=== PATIENT | female | born 1975 | race Caucasian/White ===

== ENCOUNTER 2017-01-19 17:16 | Observation (INO) | payer MEDICAID ==
[~2017-01-19] VITALS: Ht 162 cm; Wt 82.6 kg
[~2017-01-19 17:16] MED LIST: FERR-43 PO
[2017-01-19 19:08] LABS: CLARITY URINE CLEAR (CLEAR); COLOR URINE YELLOW (YELLOW); GLUCOSE URINE NEGATIVE (NEGATIVE); KETONES URINE NEGATIVE (NEGATIVE); LEUKOCYTE ESTERASE URINE 1+ (NEGATIVE); NITRITE URINE NEGATIVE (NEGATIVE); OCCULT BLOOD URINE TRACE (NEGATIVE); PROTEIN URINE 2+ (NEGATIVE); SPECIFIC GRAVITY URINE 1.009 (1.005-1.030); UROBILINOGEN URINE 0.2 E.U./dL (0.2-1.0)
[2017-01-19 19:13] LABS: BASOPHILS % 0.4 % (0.0-2.0); EOSINOPHILS % 1.8 % (0.0-5.0); HEMATOCRIT. 30.9 % (36.0-48.0); HEMOGLOBIN. 10.3 g/dL (12.0-16.0); LYMPHOCYTES % 21.7 % (20.0-50.0); MEAN CORPUSCULAR HEMOGLOBIN 32.1 pg (28.0-32.0); MEAN CORPUSCULAR HGB CONC 33.5 g/dL (31.0-37.0); MEAN CORPUSCULAR VOLUME 95.9 fL (81.0-99.0); MEAN PLATELET VOLUME 9.7 fl (7.4-10.4); MONOCYTES % 6.6 % (2.0-8.0); NEUTROPHILS % 69.5 % (40.0-76.0); PLATELET 177 x1000/uL (130-400); RED BLOOD CELL COUNT 3.22 mill/uL (4.2-5.4); RED CELL DISTRIBUTION WIDTH 14.5 % (11.6-14.6); WHITE BLOOD COUNT 8.7 x1000/uL (4.5-11.0)
[2017-01-19 19:17] LABS: CHLORIDE 110 mEq/L (98-107); INDEX HEMOLYSI 1 (1-3); INDEX ICTERIC 1 (1-4); INDEX LIPEMIC 1 (1-3)
[2017-01-19 19:25] LABS: ANION GAP 14; CALCIUM 7.9 mg/dL (8.5-10.1); CARBON DIOXIDE 20 mEq/L (21-32); UREA NITROGEN BLOOD 22 mg/dL (7-21); eGFR 39 mL/min (>60)
[2017-01-19 19:26] LABS: ALANINE AMINOTRANSFERASE 16 IU/L (13-61); ALBUMIN 1.9 g/dL (3.4-5.0); D-DIMER 1.27 mg/L FEU (<0.50); INR 0.9; PARTIAL THROMBOPLASTIN TIME 28.6 sec (24.0-34.0); PROTHROMBIN TIME 9.4 sec; URIC ACID 6.9 mg/dL (2.6-7.2)
[2017-01-19 19:27] LABS: BACTERIA URINE 2+; RBC URINE NONE SEEN /hpf (0-2); SQUAMOUS EPITHELIAL CELL URINE 1+ /lpf (RARE/1+)
[2017-01-19] MEDS ORDERED: LACTATED RINGERS 1,000 ML IV SCH (20:00)
[2017-01-19] MEDS ORDERED: CEFAZOLIN 2,000 MG in DEXT 5% WATER 100 ML IV NR (21:00)
== END 2017-01-19 21:00 | disposition home or self-care (01) ==
LOC: L&D 17:16
PROVIDERS: ADMIT Obstetrics & Gynecology; ATTEND Obstetrics & Gynecology
DX: O26.893 Other specified pregnancy related conditions, third trimester (principal); R51 Headache; R03.0 Elevated blood-pressure reading, without diagnosis of hypertension; Z3A.37 37 weeks gestation of pregnancy
CPT/HCPCS: 36415; 80053; 81001; 84550; 85025; 85379; 85384; 85610; 85730; 96365; 99281; G0378; J0690; J7120; 96360; J7060

== ENCOUNTER 2017-02-02 15:12 | Inpatient (IN) | payer MEDICAID ==
[~2017-02-02] VITALS: Ht 160 cm; Wt 82.6 kg
[2017-02-02] MEDS ORDERED: MISOPROSTOL 100MCG TABLET VG SCH (16:30)
[2017-02-02] MEDS ORDERED: CARBOPROST TROMETHAMINE 250 MCG/ML AMPUL IM PRN (16:30)
[2017-02-02] MEDS ORDERED: METHYLERGONOVINE MALEATE 0.2 MG/ML IM PRN (16:30)
[2017-02-02] MEDS: LACTATED RINGERS 1,000 ML IV SCH ×2 (16:51→19:06)
[2017-02-02 17:08] LABS: CLARITY URINE CLEAR (CLEAR); COLOR URINE YELLOW (YELLOW); GLUCOSE URINE NEGATIVE (NEGATIVE); KETONES URINE NEGATIVE (NEGATIVE); LEUKOCYTE ESTERASE URINE NEGATIVE (NEGATIVE); NITRITE URINE NEGATIVE (NEGATIVE); OCCULT BLOOD URINE 1+ (NEGATIVE); PH URINE 6.5 (4.5-8.0); PROTEIN URINE 3+ (NEGATIVE); SPECIFIC GRAVITY URINE 1.007 (1.005-1.030); UROBILINOGEN URINE 0.2 E.U./dL (0.2-1.0)
[2017-02-02 17:09] LABS: BASOPHILS % 0.4 % (0.0-2.0); EOSINOPHILS % 1.9 % (0.0-5.0); HEMATOCRIT. 31.7 % (36.0-48.0); HEMOGLOBIN. 10.8 g/dL (12.0-16.0); LYMPHOCYTES % 20.8 % (20.0-50.0); MEAN CORPUSCULAR HEMOGLOBIN 32.3 pg (28.0-32.0); MEAN PLATELET VOLUME 9.9 fl (7.4-10.4); MONOCYTES % 5.2 % (2.0-8.0); NEUTROPHILS % 71.7 % (40.0-76.0); PLATELET 183 x1000/uL (130-400); RED BLOOD CELL COUNT 3.33 mill/uL (4.2-5.4)
[2017-02-02 17:22] LABS: *AMPHETAMINES SCREEN URINE NEGATIVE (NEGATIVE); *BARBITURATES SCREEN URINE NEGATIVE (NEGATIVE); *BENZODIAZEPINES SCREEN URINE NEGATIVE (NEGATIVE); *COCAINE SCREEN URINE NEGATIVE (NEGATIVE); CANNABINOID URINE SCREEN NEGATIVE (NEGATIVE); ECSTASY MDMA SCREEN URINE NEGATIVE (NEGATIVE); METHADONE URINE SCREEN NEGATIVE (NEGATIVE); OPIATES URINE SCREEN NEGATIVE (NEGATIVE); PHENCYCLIDINE URINE SCREEN NEGATIVE (NEGATIVE)
[2017-02-02 17:22] LABS: ALANINE AMINOTRANSFERASE 18 IU/L (13-61); ALBUMIN 1.8 g/dL (3.4-5.0); ANION GAP 12; CARBON DIOXIDE 19 mEq/L (21-32); CHLORIDE 113 mEq/L (98-107); INDEX HEMOLYSI 3 (1-3); INDEX ICTERIC 1 (1-4); INDEX LIPEMIC 1 (1-3); UREA NITROGEN BLOOD 20 mg/dL (7-21); eGFR 33 mL/min (>60)
[2017-02-02 17:24] LABS: INR 0.9; PARTIAL THROMBOPLASTIN TIME 29.3 sec (24.0-34.0); PROTHROMBIN TIME 9.1 sec
[2017-02-02 17:34] LABS: BACTERIA URINE TRACE; RBC URINE 0-2 /hpf (0-2); SQUAMOUS EPITHELIAL CELL URINE FEW /lpf (RARE/1+); WBC URINE 0-2 /hpf (0-2)
[2017-02-02 17:47] LABS: HEPATITIS B SURFACE ANTIGEN NEGATIVE
[2017-02-02 17:58] LABS: RUBELLA IGG > 500.0 IU/mL (4.99-10)
[2017-02-02] MEDS ORDERED: FENTANYL CITRATE/PF 50MCG/ML 2ML VIAL ONE (21:13)
[2017-02-02] MEDS ORDERED: ONDANSETRON HCL 4MG/2ML VIAL ONE ×2 (21:40→22:17)
[2017-02-02] MEDS ORDERED: CEFAZOLIN SODIUM 1000MG/VIAL ONE (21:40)
[2017-02-02] MEDS ORDERED: OXYTOCIN 10 UNITS/ML 1ML ONE (21:41)
[2017-02-02] MEDS ORDERED: METOCLOPRAMIDE HCL 10MG/2ML VIAL ONE (21:45)
[2017-02-02] MEDS ORDERED: DEXAMETHASONE 4MG/ML 1ML VIAL ONE (21:45)
[2017-02-02] MEDS ORDERED: IBUPROFEN 400MG TABLET PO PRN (22:30)
[2017-02-02] MEDS ORDERED: RHO(D) IMMUNE GLOBULIN 300 MCG/SYR IM PRN (22:30)
[2017-02-02] MEDS ORDERED: HYDROMORPHONE HCL/PF 2MG/ML CPJ IM PRN (22:30)
[2017-02-02] MEDS ORDERED: KETOROLAC 30MG/ML VIAL IV PRN (23:00)
[2017-02-03] VITALS (8 sets, daily range): BP systolic 121–138; BP diastolic 78–98
[2017-02-03] MEDS: DEXT 5%/LR + PITOCIN 20UNITS/L 1,000 ML IV SCH ×2 (00:55→07:58)
[2017-02-03] MEDS: HYDROMORPHONE HCL/PF 2MG/ML CPJ IV PRN ×2 (01:15→01:26)
[2017-02-03] MEDS ORDERED: PNEUMOCOCCAL 23-VAL P-SAC VAC 0.5 ML IM ONE (04:00)
[2017-02-03 06:49] LABS: HEMATOCRIT. 30.5 % (36.0-48.0); HEMOGLOBIN. 10.1 g/dL (12.0-16.0); MEAN CORPUSCULAR HEMOGLOBIN 31.8 pg (28.0-32.0); MEAN CORPUSCULAR HGB CONC 33.1 g/dL (31.0-37.0); MEAN CORPUSCULAR VOLUME 96.3 fL (81.0-99.0); MEAN PLATELET VOLUME 9.9 fl (7.4-10.4); PLATELET 189 x1000/uL (130-400); RED BLOOD CELL COUNT 3.17 mill/uL (4.2-5.4); RED CELL DISTRIBUTION WIDTH 14.8 % (11.6-14.6)
[2017-02-03 06:53] LABS: DIFFERENTIAL COMMENT 1
[2017-02-03 10:23] LABS: PLATELET ESTIMATE NORMAL
[2017-02-03] MEDS: BISACODYL 10MG SUPP PR PRN (20:12)
[2017-02-03] MEDS: ACETAMINOPHEN WITH CODEINE 300/30MG TABLET PO PRN (20:13)
[2017-02-03] MEDS: IBUPROFEN 800MG TABLET PO PRN (20:14)
[2017-02-04] MEDS ORDERED: TETANUS, DIPHTHERIA, PERTUSSIS VAC/PF 0.5ML (>7YR OLD) IM ONE (00:30)
[2017-02-04 05:20] VITALS: BP 130/90
[2017-02-04] MEDS: ACETAMINOPHEN WITH CODEINE 300/30MG TABLET PO PRN ×2 (05:32→18:40)
[2017-02-04 07:35] VITALS: BP 128/83
[2017-02-04] MEDS: IBUPROFEN 800MG TABLET PO PRN ×2 (13:15→22:02)
[2017-02-04 16:00] VITALS: BP 123/82
[2017-02-04 20:15] VITALS: BP 126/76
[2017-02-04] MEDS: BISACODYL 10MG SUPP PR PRN (22:02)
[2017-02-05 04:10] VITALS: BP 127/86
[2017-02-05] MEDS: IBUPROFEN 800MG TABLET PO PRN ×2 (05:47→08:48)
[2017-02-05] MEDS: BISACODYL 10MG SUPP PR PRN (05:48)
[2017-02-05 08:56] VITALS: BP 126/84
== END 2017-02-05 12:35 | disposition home or self-care (01) | DRG 540 ==
LOC: L&D 15:12 → OBSVTOIN 15:12 → L&D 15:21 → 7EST PP/OB 02-03 01:46
PROVIDERS: ADMIT Obstetrics & Gynecology; ATTEND Obstetrics & Gynecology
PROC: 10D00Z1 Extraction of Products of Conception, Low, Open Approach (ICD-10-PCS; principal; 2017-02-02 23:50)
DX: O34.219 Maternal care for unspecified type scar from previous cesarean delivery (principal); D64.9 Anemia, unspecified; O09.523 Supervision of elderly multigravida, third trimester; Z37.0 Single live birth; Z3A.39 39 weeks gestation of pregnancy; O99.02 Anemia complicating childbirth
CPT/HCPCS: 36415; 80053; 80305; 81001; 84550; 85025; 85384; 85610; 85730; 86592; 86703; 86762; 86850; 86900; 86920; 87340; 88307; 90715; 90732; J0690; J1100; J1170; J1885; J2405; J2590; J2765; J3010; J7120

== ENCOUNTER 2018-07-18 16:01 | Emergency (ER) | payer MEDICAID ==
[~2018-07-18] VITALS: Ht 157.5 cm; Wt 70.0 kg
[2018-07-18 17:43] VITALS: BP 140/85
== END 2018-07-18 21:30 | disposition left against medical advice (07) ==
LOC: ER 16:01
DX: Z53.21 Procedure and treatment not carried out due to patient leaving prior to being seen by health care provider (principal)

== ENCOUNTER 2018-12-16 22:12 | Inpatient (IN) | payer MEDICAID ==
[~2018-12-16] VITALS: Ht 160 cm; Wt 83.9 kg
[2018-12-16] MEDS ORDERED: PREN1TAB78 MT (23:26)
[2018-12-16] MEDS ORDERED: DEXT 5%/LR + PITOCIN 20UNITS/L 1,000 ML IV SCH (23:26)
[2018-12-16] MEDS ORDERED: METHYLERGONOVINE MALEATE 0.2 MG/ML IM PRN (23:30)
[2018-12-16] MEDS ORDERED: ACETAMINOPHEN 325MG TABLET PO ONE (23:30)
[2018-12-16] MEDS ORDERED: NALOXONE HCL 0.4 MG/ML 1ML VIAL IM PRN (23:30)
[2018-12-16] MEDS ORDERED: BETAMETHASONE ACET/BETAMET 30 MG/5 ML VIAL IM ONE (23:30)
[2018-12-17 00:53] LABS: BASOPHILS % 0.7 % (0.0-2.0); HEMATOCRIT. 32.9 % (36.0-48.0); HEMOGLOBIN. 11.1 g/dL (12.0-16.0); LYMPHOCYTES % 30.4 % (20.0-50.0); MEAN CORPUSCULAR HEMOGLOBIN 32.8 pg (28.0-32.0); MEAN PLATELET VOLUME 9.9 fl (7.4-10.4); MONOCYTES % 4.9 % (2.0-8.0); PLATELET 203 x1000/uL (130-400); RED BLOOD CELL COUNT 3.39 mill/uL (4.2-5.4); RED CELL DISTRIBUTION WIDTH 14.3 % (11.6-14.6)
[2018-12-17 01:02] LABS: CHLORIDE 114 mEq/L (98-107)
[2018-12-17 01:09] LABS: INR 0.9; PARTIAL THROMBOPLASTIN TIME 29.2 sec (23.4-31.0); PROTHROMBIN TIME 9.3 sec (9.1-11.1)
[2018-12-17 01:15] LABS: CLARITY URINE CLEAR (CLEAR); COLOR URINE YELLOW (YELLOW); KETONES URINE NEGATIVE (NEGATIVE); LEUKOCYTE ESTERASE URINE NEGATIVE (NEGATIVE); NITRITE URINE NEGATIVE (NEGATIVE); OCCULT BLOOD URINE 1+ (NEGATIVE); PROTEIN URINE 3+ (NEGATIVE); SPECIFIC GRAVITY URINE 1.009 (1.005-1.030); UROBILINOGEN URINE 0.2 E.U./dL (0.2-1.0)
[2018-12-17 01:31] LABS: *AMPHETAMINES SCREEN URINE NEGATIVE (NEGATIVE); *BARBITURATES SCREEN URINE NEGATIVE (NEGATIVE); *BENZODIAZEPINES SCREEN URINE NEGATIVE (NEGATIVE)
[2018-12-17 01:32] LABS: HEPATITIS B SURFACE ANTIGEN NEGATIVE
[2018-12-17 01:33] LABS: *COCAINE SCREEN URINE NEGATIVE (NEGATIVE); CANNABINOID URINE SCREEN NEGATIVE (NEGATIVE); METHADONE URINE SCREEN NEGATIVE (NEGATIVE); OPIATES URINE SCREEN NEGATIVE (NEGATIVE); PHENCYCLIDINE URINE SCREEN NEGATIVE (NEGATIVE)
[2018-12-17] MEDS: LACTATED RINGERS 1,000 ML IV SCH ×3 (01:49→11:44)
[2018-12-17] MEDS ORDERED: ACETAMINOPHEN 325MG TABLET PO SCH (03:45)
[2018-12-17] MEDS ORDERED: BETAMETHASONE ACET/BETAMET 30 MG/5 ML VIAL IM ONE (03:45)
[2018-12-17] MEDS ORDERED: BETAMETHASONE ACET/BETAMET 30 MG/5 ML VIAL IM SCH (03:45)
[2018-12-17] MEDS ORDERED: EPHEDRINE SULFATE 50MG/ML VIAL ONE (08:04)
[2018-12-17] MEDS ORDERED: SODIUM CHLORIDE 0.9% 10ML VIAL ONE ×2 (08:04→14:34)
[2018-12-17] MEDS ORDERED: OXYTOCIN 10 UNITS/ML 1ML ONE (08:04)
[2018-12-17] MEDS ORDERED: ONDANSETRON HCL 4MG/2ML INJ ONE (08:04)
[2018-12-17] MEDS ORDERED: GLYCOPYRROLATE 0.2 MG/ML 2ML VIAL ONE (08:04)
[2018-12-17] MEDS ORDERED: PHENYLEPHRINE HCL 10 MG/ML 1ML (IV VIAL) IV ONE (08:04)
[2018-12-17] MEDS ORDERED: BUPIVACAINE HCL/DEXTROSE/PF 0.75% 2ML AMP INJ ONE (08:04)
[2018-12-17] MEDS ORDERED: MORPHINE SULFATE/PF 1MG/ML 10ML AMP ONE (08:05)
[2018-12-17] MEDS ORDERED: FENTANYL CITRATE/PF 50MCG/ML 2ML VIAL ONE (08:05)
[2018-12-17] MEDS ORDERED: CITRIC ACID/SODIUM CITRATE SOLN 30ML UDC PO NR (09:00)
[2018-12-17] MEDS ORDERED: MIDAZOLAM HCL 2 MG/2 ML VIAL ONE (16:15)
[2018-12-17] MEDS ORDERED: KETOROLAC 60MG/2ML VIAL IM ONE (16:16)
[2018-12-17] MEDS ORDERED: DEXT 5%/LR + PITOCIN 20UNITS/L 1,000 ML IV SCH (16:32)
[2018-12-17] MEDS ORDERED: HYDROMORPHONE HCL/PF 2MG/ML CPJ IM PRN (16:45)
[2018-12-17] MEDS ORDERED: IBUPROFEN 400MG TABLET PO PRN (16:45)
[2018-12-17] MEDS ORDERED: DIPHENHYDRAMINE 50MG/ML VIAL IV PRN (17:00)
[2018-12-17] MEDS ORDERED: BUTORPHANOL TARTRATE 2 MG/ML VIAL IM PRN (17:00)
[2018-12-17] MEDS ORDERED: KETOROLAC 30MG/ML VIAL IV PRN (17:00)
[2018-12-17] MEDS ORDERED: BUTORPHANOL TARTRATE 2 MG/ML VIAL IV PRN (17:00)
[2018-12-17] MEDS ORDERED: NALOXONE HCL 0.4 MG/ML 1ML VIAL IV PRN (17:00)
[2018-12-17] MEDS ORDERED: RHO(D) IMMUNE GLOBULIN 300 MCG/SYR IM PRN (17:26)
[2018-12-17 20:20] VITALS: BP 130/68
[2018-12-17 21:00] VITALS: BP 123/65
[2018-12-18 03:30] VITALS: BP 125/66
[2018-12-18 08:36] VITALS: BP 113/83
[2018-12-18 12:00] VITALS: BP 120/84
[2018-12-18 16:00] VITALS: BP 130/80
[2018-12-18 17:53] LABS: BASOPHILS % 0.4 % (0.0-2.0); EOSINOPHILS % 0.3 % (0.0-5.0); HEMATOCRIT. 29.3 % (36.0-48.0); HEMOGLOBIN. 9.6 g/dL (12.0-16.0); LYMPHOCYTES % 14.1 % (20.0-50.0); MEAN CORPUSCULAR HEMOGLOBIN 32.1 pg (28.0-32.0); MEAN CORPUSCULAR VOLUME 97.7 fL (81.0-99.0); MONOCYTES % 4.7 % (2.0-8.0); NEUTROPHILS % 80.5 % (40.0-76.0); PLATELET 210 x1000/uL (130-400); RED BLOOD CELL COUNT 2.99 mill/uL (4.2-5.4); RED CELL DISTRIBUTION WIDTH 14.9 % (11.6-14.6)
[2018-12-18] MEDS: BISACODYL 10MG SUPP PR PRN (19:07)
[2018-12-18] MEDS: IBUPROFEN 800MG TABLET PO PRN (19:07)
[2018-12-18 20:00] VITALS: BP 133/84
[2018-12-19] VITALS: BP 114/80
[2018-12-19 04:00] VITALS: BP 125/68
[2018-12-19] MEDS: ACETAMINOPHEN WITH CODEINE 300/30MG TABLET PO PRN (05:44)
[2018-12-19] MEDS ORDERED: TETANUS, DIPHTHERIA, PERTUSSIS VAC/PF 0.5ML (>7YR OLD) IM ONE (07:15)
[2018-12-19 08:00] VITALS: BP 108/56
[2018-12-19] MEDS: BISACODYL 10MG SUPP PR PRN (08:34)
[2018-12-19] MEDS: IBUPROFEN 800MG TABLET PO PRN ×2 (08:35→16:48)
[2018-12-19] MEDS ORDERED: INFLUENZA VIRUS VACCINE(AFLURIA) 0.5ML SYR IM ONE (09:00)
[2018-12-19 16:00] VITALS: BP 114/72
[2018-12-19 20:00] VITALS: BP 128/68
[2018-12-20 00:18] VITALS: BP 122/82
[2018-12-20] MEDS: ACETAMINOPHEN WITH CODEINE 300/30MG TABLET PO PRN (01:13)
[2018-12-20 04:00] VITALS: BP 118/79
[2018-12-20 07:30] VITALS: BP 130/68
== END 2018-12-20 12:15 | disposition home or self-care (01) | DRG 540 ==
LOC: INTOOBSV 22:12 → OBSVTOIN 22:12 → 8 EST LDRP 22:12 → 8EST 12-17 21:30 → UNDODISOB 12-18 00:39
PROVIDERS: ADMIT Obstetrics & Gynecology; ATTEND Obstetrics & Gynecology
PROC: 10D00Z1 Extraction of Products of Conception, Low, Open Approach (ICD-10-PCS; principal; 2018-12-17)
PROC: 0UB70ZZ Excision of Bilateral Fallopian Tubes, Open Approach (ICD-10-PCS; 2018-12-17)
DX: O34.211 Maternal care for low transverse scar from previous cesarean delivery (principal); D64.9 Anemia, unspecified; O13.4 Gestational [pregnancy-induced] hypertension without significant proteinuria, complicating childbirth; O99.02 Anemia complicating childbirth; Z3A.37 37 weeks gestation of pregnancy; Z37.0 Single live birth; Z30.2 Encounter for sterilization; Z79.899 Other long term (current) drug therapy; Z82.49 Family history of ischemic heart disease and other diseases of the circulatory system
CPT/HCPCS: 36415; 80305; 82962; 84550; 85384; 86703; 86762; 86850; 86900; 86920; 87340; 88302; 88307; 90686; 90715; 99281; G0378; J0702; J1885; J2250; J2274; J2370; J2405; J2590; J3010; J3490; J7120

== ENCOUNTER 2023-04-02 22:15 | Emergency (ER) | payer MEDICAID ==
[~2023-04-02] VITALS: Ht 160 cm; Wt 81.3 kg
[~2023-04-02 22:15] MED LIST changes: +PREN1TAB78 MT
[2023-04-03] MEDS ORDERED: NAPR-681 MT (02:21)
[2023-04-03] MEDS ORDERED: KETOROLAC 30MG/ML VIAL IM ONE (02:30)
[2023-04-03 02:49] VITALS: BP 124/72
== END 2023-04-03 02:50 | disposition home or self-care (01) ==
LOC: ER 22:15
DX: S63.501A Unspecified sprain of right wrist, initial encounter (principal); M25.531 Pain in right wrist; W22.8XXA Striking against or struck by other objects, initial encounter; Y93.89 Activity, other specified; Y92.89 Other specified places as the place of occurrence of the external cause; Y99.8 Other external cause status; Z98.890 Other specified postprocedural states
CPT/HCPCS: 73110; 99283